=== PATIENT | female | born 1970 | race Caucasian/White ===

== ENCOUNTER 2024-06-04 13:03 | Observation (INO) | payer OTHER ==
[2024-06-04 13:34] VITALS: BMI 35.4
[2024-06-04] MEDS ORDERED: Lorazepam 2 MG/ML VIAL IM PRN (14:40)
[2024-06-04] MEDS ORDERED: Ondansetron ODT 4 MG TAB PO PRN (14:40)
[2024-06-04] MEDS ORDERED: Electrolyte Replacement Protocol 1 EACH FS SCH (14:45)
[2024-06-04] MEDS ORDERED: Electrolyte Replacement Protocol FS PRN (15:00)
[2024-06-04] MEDS: Thiamine HCl 200 MG/2 ML VIAL SLOW IVP SCH (15:27)
[2024-06-04] MEDS: Nicotine 21 MG PATCH TD SCH (15:27)
[2024-06-04 16:12] LABS: Amphetamine Not Detected (NotDetected); Barbiturates Screen Not Detected (NotDetected); Benzodiazepine Screen Not Detected (NotDetected); Cocaine Metabolite Screen Not Detected (NotDetected); Methadone Not Detected (NotDetected); Methamphetamine Not Detected (NotDetected); Opiate Screen Not Detected (NotDetected); Oxycodone Screen Not Detected (NotDetected); Phencyclidine (PCP) Not Detected (NotDetected); THC/Cannabinoid Screen Not Detected (NotDetected); Tricyclic Screen Not Detected (NotDetected)
[2024-06-04] MEDS: Lorazepam 1 MG TAB PO PRN (16:43)
[2024-06-04] MEDS: Ketorolac Tromethamine 30 MG (1 mL) VIAL IVP PRN (16:43)
[2024-06-04] MEDS: Ipratropium/Albuterol 3 ML NEB NEB SCH (19:24)
[2024-06-04] MEDS: Oseltamivir 75 MG CAP PO SCH (20:39)
[2024-06-04] MEDS: Famotidine 20 MG TAB PO SCH (20:39)
[2024-06-04 22:09] LABS: Phosphorus 2.1 mg/dL (2.5-4.5)
[2024-06-05 01:56] LABS: Campy jejuni + coli by PCR Negative (Negative); STEC Shiga Toxin 1+2 Negative (Negative); Salmonella spp. by PCR Negative (Negative); Shigella spp + EIEC by PCR Negative (Negative)
[2024-06-05 06:10] LABS: #Basophils Less than 0.03 10x3/uL (0.0-0.2); #Eosinophils Less than 0.03 10x3/uL (0.0-0.7); %Monocytes 8.3 % (0.0-10.0); %Neutrophils 79.2 % (42.0-75.0); Hematocrit 39.6 % (36.0-47.0); Hemoglobin 12.9 g/dL (12.0-16.0); Mean Corpuscular HGB CONC 32.6 g/dL (32.0-36.0); Mean Corpuscular Hemoglobin 31.5 pg (27.0-31.0); Mean Corpuscular Volume 96.6 fL (78.0-98.0); Mean Platelet Volume 10.6 fL (7.4-10.4); Platelet Count 213 10x3/uL (130-400); RBC Distribution Width 12.9 % (11.5-14.5)
[2024-06-05 06:24] LABS: ALT (SGPT) 156 U/L (Less than 34); AST (SGOT) 103 U/L (11-34); Albumin 3.2 g/dL (3.1-4.5); Alkaline Phosphatase 129 U/L (40-110); Anion Gap 12 mmol/L (10-20); BUN (Urea Nitrogen) 19 mg/dL (9.8-20.1); Bilirubin, Total 0.2 mg/dL (0.3-1.2); Calc. Creatinine Clearance 114 mL/min (70-130); Calcium 9.3 mg/dL (7.8-10.44); Carbon Dioxide 28 mmol/L (22-29); Chloride 106 mmol/L (98-107); Estimated GFR 104; Globulin 3.3 g/dL (2.4-3.5); Glucose 147 mg/dL (70-105); Potassium 4.2 mmol/L (3.5-5.1); Protein, Total 6.5 g/dL (6.0-8.3); Sodium 142 mmol/L (136-145)
[2024-06-05] MEDS: Losartan 25 MG TAB PO SCH (08:07)
[2024-06-05] MEDS: predniSONE 20 MG TAB PO SCH (08:07)
[2024-06-05] MEDS: Enoxaparin 40 MG (0.4 mL) SYRINGE SC SCH (08:08)
[2024-06-05] MEDS: Multivit, Therapeutic 1 TAB PO SCH (08:08)
[2024-06-05] MEDS: Hydrochlorothiazide 25 MG TAB PO SCH (08:08)
[2024-06-05] MEDS: Folic Acid 1 MG TAB PO SCH (08:08)
[2024-06-05] MEDS ORDERED: Lorazepam 1 MG TAB PO PRN (14:41)
[2024-06-06] MEDS: Acetaminophen/Codeine 30-300mg Tablet PO PRN (00:36)
[2024-06-06] MEDS: Guaifenesin DM 100-10/5 ML UDCUP PO PRN (00:36)
[2024-06-06] MEDS: Ondansetron ODT 4 MG TAB PO PRN (05:04)
[2024-06-06 06:10] LABS: #Basophils Less than 0.03 10x3/uL (0.0-0.2); %Basophils 0.3 % (0.0-1.0); %Eosinophils 0.5 % (0.0-10.0); %Lymphocytes 31.7 % (21.0-51.0); %Monocytes 7.4 % (0.0-10.0); %Neutrophils 59.8 % (42.0-75.0); Hematocrit 38.8 % (36.0-47.0); Hemoglobin 12.6 g/dL (12.0-16.0); Mean Corpuscular HGB CONC 32.5 g/dL (32.0-36.0); Mean Corpuscular Hemoglobin 31.3 pg (27.0-31.0); Mean Corpuscular Volume 96.5 fL (78.0-98.0); Mean Platelet Volume 10.3 fL (7.4-10.4); Platelet Count 240 10x3/uL (130-400); Red Blood Cell (RBC) Count 4.02 mill/uL (4.20-5.40)
[2024-06-06 06:36] LABS: ALT (SGPT) 113 U/L (Less than 34); AST (SGOT) 53 U/L (11-34); Albumin 3.3 g/dL (3.1-4.5); Alkaline Phosphatase 108 U/L (40-110); Anion Gap 14 mmol/L (10-20); BUN (Urea Nitrogen) 21 mg/dL (9.8-20.1); Bilirubin, Total 0.2 mg/dL (0.3-1.2); Calc. Creatinine Clearance 109 mL/min (70-130); Calcium 8.9 mg/dL (7.8-10.44); Carbon Dioxide 28 mmol/L (22-29); Chloride 103 mmol/L (98-107); Estimated GFR 103; Globulin 3.2 g/dL (2.4-3.5); Glucose 95 mg/dL (70-105); Potassium 3.3 mmol/L (3.5-5.1); Protein, Total 6.5 g/dL (6.0-8.3); Sodium 142 mmol/L (136-145)
[2024-06-06 08:19] VITALS: BP 115/62; TEMP 98.1
[2024-06-06] MEDS: Potassium Chloride 20 MEQ TAB PO SCH (08:25)
[2024-06-06] MEDS ORDERED: Lorazepam 1 MG TAB PO PRN (14:41)
[2024-06-07] MEDS ORDERED: Thiamine 100 MG TAB PO SCH (09:00)
[2024-06-07] MEDS ORDERED: Lorazepam 0.5 MG TAB PO PRN (14:41)
== END 2024-06-06 10:10 | disposition home or self-care (01) ==
LOC: INTOOBSV 13:20 → SURG A 13:20
PROVIDERS: ADMIT Family Medicine; ATTEND Internal Medicine
DX: J96.01 Acute respiratory failure with hypoxia (principal); J44.1 Chronic obstructive pulmonary disease with (acute) exacerbation; J10.1 Influenza due to other identified influenza virus with other respiratory manifestations; R74.01 Elevation of levels of liver transaminase levels; I10 Essential (primary) hypertension; E87.6 Hypokalemia; F17.200 Nicotine dependence, unspecified, uncomplicated; F10.10 Alcohol abuse, uncomplicated; Y90.9 Presence of alcohol in blood, level not specified; Z87.59 Personal history of other complications of pregnancy, childbirth and the puerperium; Z90.89 Acquired absence of other organs; Z88.8 Allergy status to other drugs, medicaments and biological substances; Z88.6 Allergy status to analgesic agent; Z88.0 Allergy status to penicillin; Z79.51 Long term (current) use of inhaled steroids; Z79.2 Long term (current) use of antibiotics; Z79.899 Other long term (current) drug therapy
CPT/HCPCS: 36415; 80053; 80306; 84100; 85025; 87324; 87449; 87505; 94640; J1650; J1885; J3411; J7512; J7620; Q0162